=== PATIENT | male | born 1955 | race Two or more races ===

== ENCOUNTER 2022-02-21 02:06 | Emergency (ER) | payer OTHER ==
[~2022-02-21] VITALS: Ht 172.7 cm; Wt 79.5 kg
[2022-02-21] MEDS ORDERED: CYCL-837 PO (03:56)
[2022-02-21] MEDS ORDERED: IBUP800T27 PO (03:56)
[2022-02-21] MEDS ORDERED: KETOROLAC TROMETH 60MG/2ML VIAL IM ONE (04:00)
[2022-02-21 04:24] VITALS: BP 143/89
== END 2022-02-21 04:20 | disposition home or self-care (01) ==
LOC: ER 02:06
DX: M54.50 Low back pain, unspecified (principal); I10 Essential (primary) hypertension; Z79.899 Other long term (current) drug therapy
CPT/HCPCS: 96372; 99283; J1885